=== PATIENT | male | born 1985 | race Caucasian/White ===

== ENCOUNTER 2022-01-16 18:51 | Emergency (ER) | payer MEDICAID ==
[~2022-01-16] VITALS: Ht 180.3 cm; Wt 93.0 kg
[2022-01-16 19:22] VITALS: BP 179/81
--- NOTE | 2022-01-16 19:30 | NUR ---
TO LOBBY FOLLOWING TRIAGE
[2022-01-16] MEDS ORDERED: ACETAMINOPHEN EXTRA STRENGTH 500 MG TAB PO ONE (20:45)
[2022-01-16] MEDS ORDERED: NACL 0.9% 1,000 ML IV ONE (20:45)
[2022-01-16] MEDS ORDERED: MORPHINE SULFATE 4 MG/ML SYR IVP ONE (20:45)
[2022-01-16] MEDS ORDERED: IBUPROFEN 800 MG TAB PO ONE (20:45)
[2022-01-16] MEDS ORDERED: SULFAMETH/TRIMETH DS 800/160MG 1 TAB PO ONE (20:45)
[2022-01-16] MEDS ORDERED: LIDOCAINE/EPI MPF 2%1:200000 10 ML VIAL INJ ONE (20:50)
--- NOTE | 2022-01-16 20:50 | NUR ---
ERMD HAD LIDOCAINE 1 % AT BEDSIDE USING FOR PT PROCEDURE. UNSURE WHICH NURSE PULLED TH ELIDOCAINE FOR ERMD. PER ERMD NO NEED TO GET THE ORDERED LIDOCAINE 2% W EPI.
--- NOTE | 2022-01-16 21:01 | NUR ---
ERMD AT BEDSIDE FOR PT PROCEDURE.
[2022-01-16] MEDS ORDERED: cephALEXin 500 MG CAP PO ONE (21:15)
[2022-01-16] MEDS ORDERED: CEPH-588 PO (21:16)
[2022-01-16] MEDS ORDERED: SULF-59 PO (21:16)
--- NOTE | 2022-01-16 21:20 | NUR ---
PT DENIES ANY ONGOING PAIN AT THIS TIME.
[2022-01-16 21:40] VITALS: BP 130/88
--- NOTE | 2022-01-16 21:40 | NUR ---
Patient discharged with v/s stable. Written and verbal after care instructions given and explained. Patient alert, oriented and verbalized understanding of instructions. Ambulatory with steady gait. All questions addressed prior to discharge. ID band removed. Patient advised to follow up with PMD. Rx of KEFLEX, BACTRIM given. Patient educated on indication of medication including possible reaction and side effects. Opportunity to ask questions provided and answered.
== END 2022-01-16 21:40 | disposition home or self-care (01) ==
LOC: MED 18:51
DX: L02.416 Cutaneous abscess of left lower limb (principal); L03.116 Cellulitis of left lower limb; Z79.2 Long term (current) use of antibiotics
CPT/HCPCS: 10060; 99284; J2001

== ENCOUNTER 2022-01-20 09:55 | Emergency (ER) | payer MEDICAID ==
[~2022-01-20] VITALS: Ht 180.3 cm; Wt 93.0 kg
[~2022-01-20 09:55] MED LIST: CEPH-588 PO; SULF-59 PO
[2022-01-20 09:57] VITALS: BP 127/77
--- NOTE | 2022-01-20 10:02 | NUR ---
Patient ambulated to bed 08 with steady/even gait.
--- NOTE | 2022-01-20 10:10 | NUR ---
36 y/o M BIB self left foot and ankle swelling s/p I&D performed @ [facility] on 01/16/22. Patient states day 3 of 5 of Keflex treatment, reports ABX isn't improving symptoms. Reports swelling reduced to left lower extremity, however, worsened to left foot/ankle. States difficulty ambulating d/t swelling. +2 pitting edema to left foot/ankle. +PMSC, denies loss of sensation/numbness. Patient denies pain, fever, chills, SOB, chest pain. Reports ABX compliance, Ibuprofen last night with minor relief. PMH/Sx/Meds: Denies NKDA
--- NOTE | 2022-01-20 10:20 | NUR ---
Dr. Limon is evaluating patient at bedside
--- NOTE | 2022-01-20 10:46 | NUR ---
Lab at bedside
[2022-01-20 11:34] LABS: BASOPHILS # (AUTO) 0.1 K/uL (0.00-0.22); BASOPHILS % (AUTO) 1.3 % (0.0-2.0); EOSINOPHILS # (AUTO) 0.1 K/uL (0-0.4); EOSINOPHILS % (AUTO) 2.5 % (0.0-4.0); HEMATOCRIT 43.6 % (36-52); HEMOGLOBIN 14.6 g/dL (12.0-18.0); LYMPHOCYTES % (AUTO) 33.9 % (20.5-51.1); MEAN CORPUSCULAR HEMOGLOBIN 31 pg (27-31); MEAN CORPUSCULAR HGB CONC 34 g/dL (33-37); MEAN CORPUSCULAR VOLUME 93.1 fL (80-94); MONOCYTES # (AUTO) 0.5 K/uL (0.8-1.0); MONOCYTES % (AUTO) 7.7 % (1.7-9.3); NEUTROPHILS # (AUTO) 3.2 K/uL (1.8-7.7); NEUTROPHILS % (AUTO) 54.6 % (42.2-75.2); PLATELET COUNT (AUTO) 344 K/uL (140-450); RED BLOOD CELL COUNT(AUTO) 4.68 MIL/uL (4.20-6.10); RED CELL DISTRIBUTION WIDTH 12.3 % (11.6-13.7); WHITE BLOOD COUNT (AUTO) 5.9 K/uL (4.8-10.8)
[2022-01-20 12:10] LABS: ALBUMIN 3.5 g/dL (3.4-5.0); ANION GAP 9.8 (8-16); CREATININE 1.3 mg/dL (0.6-1.3); POTASSIUM 3.8 mmol/L (3.5-5.1); TOTAL BILIRUBIN 0.4 mg/dL (0.0-1.0)
[2022-01-20] MEDS ORDERED: BACITRACIN OINT 500 UNITS/GM PKT TP ONE (13:20)
[2022-01-20] MEDS ORDERED: SULF-59 PO (13:20)
[2022-01-20] MEDS ORDERED: SULFAMETH/TRIMETH DS 800/160MG 1 TAB PO ONE (13:20)
[2022-01-20] MEDS ORDERED: BACI1PAC6 TP (13:21)
[2022-01-20] MEDS ORDERED: IBUP-2213 PO (13:21)
[2022-01-20 13:55] VITALS: BP 124/78
--- NOTE | 2022-01-20 14:00 | NUR ---
Patient discharged with v/s stable. Written and verbal after care instructions given and explained. Patient alert, oriented and verbalized understanding of instructions. Ambulatory with steady gait. All questions addressed prior to discharge. ID band removed. Patient advised to follow up with PMD. Rx of Bactrim, Ibuprofen, Bacitracin given. Patient educated on indication of medication including possible reaction and side effects. Opportunity to ask questions provided and answered.
== END 2022-01-20 14:00 | disposition home or self-care (01) ==
LOC: MED 09:55
DX: L02.416 Cutaneous abscess of left lower limb (principal); L03.116 Cellulitis of left lower limb; Z79.899 Other long term (current) drug therapy
CPT/HCPCS: 36415; 80053; 83605; 85025; 99283

== ENCOUNTER 2022-02-18 18:46 | Emergency (ER) | payer MEDICAID ==
[~2022-02-18] VITALS: Ht 180.3 cm; Wt 95.7 kg
[~2022-02-18 18:46] MED LIST changes: +BACI1PAC6 TP; +IBUP-2213 PO
[2022-02-18 19:05] VITALS: BP 120/68
--- NOTE | 2022-02-18 19:34 | NUR ---
Dr. Palomino at triage to exam patient.
[2022-02-18] MEDS ORDERED: ACETAMINOPHEN 325 MG TAB PO ONE (19:40)
[2022-02-18 20:00] VITALS: BP 120/68
--- NOTE | 2022-02-18 20:00 | NUR ---
Patient discharged with v/s stable. Written and verbal after care instructions given and explained. Patient verbalized understanding. Ambulatory with steady gait. All questions addressed prior to discharge. Advised to follow up with PMD.
== END 2022-02-18 20:00 | disposition home or self-care (01) ==
LOC: MED 18:46
DX: R51.9 Headache, unspecified (principal); R50.9 Fever, unspecified
CPT/HCPCS: 99282

== ENCOUNTER 2023-07-30 09:06 | Emergency (ER) | payer MEDICAID, OTHER ==
[~2023-07-30] VITALS: Ht 180.3 cm; Wt 108.9 kg
[~2023-07-30 09:06] MED LIST changes: +BACI-418 TP; -BACI1PAC6 TP
[2023-07-30 09:09] VITALS: BP 160/94; PULSE 111; RESP 18; TEMP 98.8; O2SAT 96
[2023-07-30] MEDS ORDERED: KETOROLAC 30 MG/ML VIAL IM ONE (11:10)
[2023-07-30] MEDS ORDERED: IBUP-2213 PO (12:21)
[2023-07-30 12:31] VITALS: BP 135/77; PULSE 87; RESP 18; TEMP 98.8; O2SAT 96
== END 2023-07-30 12:32 | disposition home or self-care (01) ==
LOC: MED 09:06
DX: R51.9 Headache, unspecified (principal); I10 Essential (primary) hypertension; Z79.899 Other long term (current) drug therapy
CPT/HCPCS: 96372; 99283; J1885